=== PATIENT | female | born 1970 | race Caucasian/White ===

== ENCOUNTER 2018-01-20 21:38 | Emergency (ER) | payer OTHER, SELFPAY ==
[2018-01-20 21:40] VITALS: BP 130/92; PULSE 107; RESP 20; TEMP 37.4; O2SAT 97; BMI 27.1
--- NOTE | 2018-01-20 22:40 | ED.RN ---
SPOKE WITH PATIENT. PT STATED SHE WANTS TO LEAVE. STATES SHE FEELS MUCH BETTER AND HER FEVER BROKE. PT VERBALIZED IF SYMPTOMS WORSEN OR IF SHE HAS ANY OTHER CONCERNS SHE WILL COME BACK IMMEDIATELY. SHE STATES SHE WILL CALL HER PCP IN THE MORNING.
== END 2018-01-20 22:40 | disposition left against medical advice (07) ==
LOC: ED 01-21 00:18
PROVIDERS: Emergency Provider Emergency Medicine; Family Provider Family Medicine; PCP Family Medicine
DX: R69 Illness, unspecified (principal)

== ENCOUNTER → 2021-06-03 13:37 | Outpatient (CLI) | payer OTHER, SELFPAY ==
--- NOTE | 2021-06-03 13:44 | BI_ITS ---
MAMMOGRAPHY - BILATERAL SCREENING 3-D TOMOSYNTHESIS REASON FOR EXAM: Female, 50 years old. SCREENING PERTINENT HISTORY: No significant family history. TECHNIQUE: 2-D mammograms and 3-D Tomosynthesis of the breast (s) were performed. CAD was performed. COMPARISON: 04/28/2016 FINDINGS: The breast composition is heterogeneously dense that can obscure small breast masses. Scattered benign calcifications are seen. No dense spiculated masses or suspicious microcalcifications are identified. No architectural distortion is identified. There is no skin thickening or retraction. There has been no significant change since the prior study. BI/SCRN MAMM (CAD)W/LOTTIE BILAT IMPRESSION: No mammographic signs of malignancy. Routine yearly mammograms recommended. ASSESSMENT CATEGORY: BIRADS Category 1: Negative. A letter regarding these results will be sent to the patient by the facility within 30 days. FOLLOW UP RECOMMENDATION: Yearly follow up mammogram recommended. (A) Approximately 10% of breast cancers are not detected by mammography. A normal mammogram should not delay biopsy of a clinically suspicious abnormality. Electronically Signed: Kyle Weber MD at 15:36 EDT Tel , Service support ,
== END ==
PROVIDERS: PCP Family Medicine; Referring Provider Family Medicine; Visit Provider Family Medicine
DX: Z12.31 Encounter for screening mammogram for malignant neoplasm of breast (principal)
CPT/HCPCS: 77063; 77067

== ENCOUNTER → 2024-03-05 | Outpatient (CLI) | payer OTHER, SELFPAY ==
[2024-03-05 15:27] LABS: Absolute Lymphocyte Count 2.65 X10^3/uL (0.83-4.51); Absolute Neutrophil Count 3.6 X10^3/uL (2.0-7.7); Basophil# 0.04 X10^3/uL; Basophil% 0.6 % (0-1); Eosinophils% 1.4 % (0-5); Hematocrit 36.3 % (37-47); Hemoglobin 11.8 g/dL (12.0-15.0); Lymphocyte # 2.65 X10^3/ul (0.83-4.51); Mean Corp Hgb Conc 32.5 g/dL (32-36); Mean Corpuscular Hgb 29.2 pg (27.0-32.0); Mean Corpuscular Volume 89.9 fL (81-99); Mean Platelet Vol. 10.2 fl (6.2-12.0); Monocyte# 0.53 X10^3/uL; Monocyte% 7.6 % (0-10); NRBC Flagged by Analyzer 0 % (0-5); Neutrophil # 3.63 X10^3/uL (2.7-7.7); Neutrophil % 52.1 % (47-70); Platelet Count 283 K/mm3 (150-450); RBC Distribution Width CV 12.3 % (11.6-14.6); RBC Distribution Width SD 40.8 fl (35.1-43.9); Red Blood Count 4.04 M/mm3 (4.2-5.4)
[2024-03-05 15:35] LABS: Erythrocyte Sedimentation Rate 3 mm/hr (0-30)
[2024-03-05 18:32] LABS: ALB/GLOB Ratio 1.1 RATIO (0.9-2.4); AST(SGOT) 20 U/L (15-37); Alanine Aminotransfer ALT/SGPT 18 U/L (13-56); Albumin, Serum 3.8 g/dL (3.2-5.0); Alkaline Phosphatase 86 U/L (45-117); Anion Gap 6 (5-15); BUN 18 mg/dL (7-18); BUN/Creat Ratio 28.4 RATIO (10-20); CRP < 2.90 mg/L (0.0-3.0); Calcium,Total 9.1 mg/dL (8.5-10.1); Chloride 107 mmol/L (98-107); Creatinine, Serum 0.63 mg/dL (0.55-1.02); EST Glomerular Filtration Rate 103 mL/min (>60); Est Glom Filt Rate - Afr Amer 125 mL/min (>60); Globulin 3.5 g/dL (2.2-4.2); Glucose 90 mg/dL (74-106); Potassium 3.8 mmol/L (3.5-5.1); Protein, Total 7.3 g/dL (6.4-8.2); Sodium Level 140 mmol/L (136-145)
[2024-03-07 12:09] LABS: ANTINUCLEAR ANTIBODIES DIRECT Negative (Negative)
[2024-03-13 12:09] LABS: HLA B27 Positive (.)
== END | disposition home or self-care (01) ==
LOC: BFHLAB 13:52
PROVIDERS: PCP Family Medicine; Referring Provider Family Medicine; Visit Provider Family Medicine
DX: L40.9 Psoriasis, unspecified (principal); M25.50 Pain in unspecified joint; M79.10 Myalgia, unspecified site
CPT/HCPCS: 36415; 80053; 81374; 85025; 85652; 86038; 86140; 86225; 86235

== ENCOUNTER → 2024-06-01 | Outpatient (CLI) | payer OTHER, SELFPAY ==
[2024-06-01 16:57] LABS: Absolute Lymphocyte Count 2.89 X10^3/uL (0.83-4.51); Absolute Neutrophil Count 5.7 X10^3/uL (2.0-7.7); Basophil# 0.05 X10^3/uL; Basophil% 0.5 % (0-1); Eosinophil# 0.08 X10^3/uL; Eosinophils% 0.9 % (0-5); Hematocrit 37.7 % (37-47); Hemoglobin 12.1 g/dL (12.0-15.0); Lymphocyte # 2.89 X10^3/ul (0.83-4.51); Mean Corp Hgb Conc 32.1 g/dL (32-36); Mean Corpuscular Hgb 29.5 pg (27.0-32.0); Mean Platelet Vol. 10.3 fl (6.2-12.0); Monocyte# 0.53 X10^3/uL; Monocyte% 5.7 % (0-10); NRBC Flagged by Analyzer 0 % (0-5); Neutrophil # 5.74 X10^3/uL (2.7-7.7); Neutrophil % 61.7 % (47-70); Platelet Count 327 K/mm3 (150-450); RBC Distribution Width CV 11.9 % (11.6-14.6); RBC Distribution Width SD 40.5 fl (35.1-43.9); White Blood Count 9.3 K/mm3 (4.4-11.0)
[2024-06-01 17:38] LABS: Vitamin B12 579 pg/mL (211-911)
[2024-06-01 17:58] LABS: Ferritin 36 ng/mL (8-252); Iron Binding Capacity,Total 311 ug/dL (250-450)
[2024-06-02 08:14] LABS: Iron 83 ug/dL (50-170); PERCENT IRON SATURATION 26.7 % (15.0-55.0)
[2024-06-04 18:08] LABS: Endomysial Antibody IgA Negative (Negative); Immunoglobulin A 194 mg/dL (87-352); t-Transglutaminase IgA <2 U/mL (0-3)
== END | disposition home or self-care (01) ==
LOC: BFHLAB 14:22
PROVIDERS: PCP Family Medicine; Visit Provider Family Medicine
DX: K58.2 Mixed irritable bowel syndrome (principal); D64.9 Anemia, unspecified
CPT/HCPCS: 36415; 82607; 82728; 82746; 82784; 83516; 83540; 83550; 85025; 86255

== ENCOUNTER → 2024-06-27 | Outpatient (CLI) | payer OTHER, SELFPAY ==
[2024-06-27 10:36] LABS: Absolute Lymphocyte Count 2.46 X10^3/uL (0.83-4.51); Absolute Neutrophil Count 3.9 X10^3/uL (2.0-7.7); Basophil# 0.05 X10^3/uL; Basophil% 0.7 % (0-1); Eosinophil# 0.08 X10^3/uL; Eosinophils% 1.1 % (0-5); Hematocrit 37.6 % (37-47); Hemoglobin 12.6 g/dL (12.0-15.0); Lymphocyte # 2.46 X10^3/ul (0.83-4.51); Lymphocyte % 34.5 % (19-41); Mean Corp Hgb Conc 33.5 g/dL (32-36); Mean Corpuscular Hgb 30.4 pg (27.0-32.0); Mean Corpuscular Volume 90.8 fL (81-99); Mean Platelet Vol. 9.5 fl (6.2-12.0); Monocyte# 0.56 X10^3/uL; Monocyte% 7.9 % (0-10); NRBC Flagged by Analyzer 0 % (0-5); Neutrophil # 3.94 X10^3/uL (2.7-7.7); Neutrophil % 55.2 % (47-70); Platelet Count 321 K/mm3 (150-450); RBC Distribution Width CV 11.8 % (11.6-14.6); Red Blood Count 4.14 M/mm3 (4.2-5.4); White Blood Count 7.1 K/mm3 (4.4-11.0)
[2024-06-27 11:10] LABS: ALB/GLOB Ratio 1.2 RATIO (0.9-2.4); AST(SGOT) 22 U/L (15-37); Alanine Aminotransfer ALT/SGPT 24 U/L (13-56); Albumin, Serum 4.1 g/dL (3.2-5.0); Alkaline Phosphatase 84 U/L (45-117); Anion Gap 3 (5-15); BUN 17 mg/dL (7-18); BUN/Creat Ratio 23.5 RATIO (10-20); CRP < 2.90 mg/L (0.0-3.0); Chloride 107 mmol/L (98-107); Creatinine, Serum 0.72 mg/dL (0.55-1.02); EST Glomerular Filtration Rate 89 mL/min (>60); Est Glom Filt Rate - Afr Amer 107 mL/min (>60); Free T3 2.7 pg/mL (2.18-3.98); Globulin 3.3 g/dL (2.2-4.2); Glucose 85 mg/dL (74-106); LDH 195 U/L (84-246); Potassium 3.8 mmol/L (3.5-5.1); Protein, Total 7.4 g/dL (6.4-8.2); Sodium Level 138 mmol/L (136-145); T4 Free Direct 0.99 ng/dL (0.76-1.46); Thyroid Stim Hormone (TSH) 0.893 uIU/mL (0.358-3.740)
[2024-06-27 11:11] LABS: Erythrocyte Sedimentation Rate 7 mm/hr (0-30)
[2024-07-02 17:07] LABS: Anti-Centromere B Ab <0.2 AI (0.0-0.9); Anti-Chromatin <0.2 AI (0.0-0.9); Anti-Jo <0.2 AI (0.0-0.9); Anti-Scleroderma-70 AB <0.2 AI (0.0-0.9); Anti-dsDNA Ab 1 IU/mL (0-9); Beef <0.10 kU/L (Class 0); Chocolate <0.10 kU/L (Class 0); Codfish <0.10 kU/L (Class 0); Corn <0.10 kU/L (Class 0); Egg, Whole <0.10 kU/L (Class 0); Milk (Cow) <0.10 kU/L (Class 0); Mussels <0.10 kU/L (Class 0); Peanut <0.10 kU/L (Class 0); Pork <0.10 kU/L (Class 0); RNP Ab <0.2 AI (0.0-0.9); SJOGREN'S Anti-SS-A test < 0.2 AI (0.0-0.9); SJOGREN'S Anti-SS-B test < 0.2 AI (0.0-0.9); Salmon <0.10 kU/L (Class 0); Shrimp <0.10 kU/L (Class 0); Smith Ab <0.2 AI (0.0-0.9); Soybean <0.10 kU/L (Class 0); Tuna <0.10 kU/L (Class 0); Wheat <0.10 kU/L (Class 0)
[2024-07-03 11:10] LABS: ACCA 43 units (0-90); ALCA 3 units (0-60); AMCA 10 units (0-100); Alpha-1-Globulins 0.2 g/dL (0.0-0.4); Alpha-2-Globulins 0.9 g/dL (0.4-1.0); Cytoplasmic Ab (C-ANCA) <1:20 titer (Neg:<1:20); Endomysial Antibody IgA Negative (Negative); Gamma Globulin 0.9 g/dL (0.4-1.8); Immunoglobulin A 203 mg/dL (87-352); Immunoglobulin E 30 IU/mL (6-495); Immunoglobulin G 926 mg/dL (586-1602); Immunoglobulin M 46 mg/dL (26-217); PROEL- TOTAL PROTEIN 7.1 g/dL (6.0-8.5); Perinuclear Ab (P-ANCA) <1:20 titer (Neg:<1:20); gASCA 13 units (0-50); t-Transglutaminase IgA <2 U/mL (0-3)
== END | disposition home or self-care (01) ==
PROVIDERS: PCP Family Medicine; Referring Provider Student in an Organized Health Care Education/Training Program; Visit Provider Student in an Organized Health Care Education/Training Program
DX: R19.7 Diarrhea, unspecified (principal)
CPT/HCPCS: 36415; 80053; 82784; 82785; 83516; 83615; 84165; 84439; 84443; 84481; 85025; 85652; 86003; 86005; 86036; 86037; 86140; 86225; 86235; 86255; 86334; 86671

== ENCOUNTER → 2024-06-28 | Outpatient (CLI) | payer OTHER, SELFPAY ==
[2024-07-02 15:08] LABS: Pancreatic Elastase, Fecal 51 (>200)
[2024-07-04 08:13] LABS: Calprotectin, Stool 25 ug/g (0-120)
== END | disposition home or self-care (01) ==
LOC: LABSPEC 08:00
PROVIDERS: PCP Family Medicine; Referring Provider Student in an Organized Health Care Education/Training Program; Visit Provider Student in an Organized Health Care Education/Training Program
DX: K58.9 Irritable bowel syndrome, unspecified (principal); R19.7 Diarrhea, unspecified
CPT/HCPCS: 82653; 83630; 83993; 87177; 87209; 87329; 87506

== ENCOUNTER 2024-08-10 12:43 | Day surgery (SDC) | payer OTHER, SELFPAY ==
[2024-08-10] VITALS (7 sets, daily range): BP systolic 96–117; BP diastolic 52–71; PULSE 67–77; RESP 16; TEMP 36.4–36.9; O2SAT 96–99; BMI 26.5
--- NOTE | 2024-08-10 13:23 | PCM.PRE.AN2 ---
ASA Classification* ASA Classification ASA Classification: 2 Assessment & Plan Anesthesia* Anesthesia Assessment Anesthesia Assessment: Discussed sedation and/or anesthesia options, risks, benefits, and alternatives with patient/parents/legal guardian/POA. Questions invited. The patient/parents/legal guardian/POA seems to understand and agrees to proceed with anesthesia plan. Reviewed the physical assessment, medical history, allergy history and patient home medications list prior to surgery/procedure/anesthetic and documented any changes. Performed airway and anesthesia risk assessments. Anesthesia Type Anesthesia Type: MAC Anesthesia Focused Assessment* Temperature: 98.4 F Pulse Rate: 77 Blood Pressure: 117/52 Respiratory Rate: 16 Pulse Ox: 99 Airway Assessment Mouth opens: >3 cm Mallampati Score: II Focused Labs Anesthesia Preop lab: CBC WBC 7.1 K/mm3 (4.4-11.0) 06/27/24 10:14 RBC 4.14 M/mm3 (4.2-5.4) L 06/27/24 10:14 Hgb 12.6 g/dL (12.0-15.0) 06/27/24 10:14 Hct 37.6 % (37-47) 06/27/24 10:14 Plt Count 321 K/mm3 (150-450) 06/27/24 10:14 CHEMISTRY Potassium 3.8 mmol/L (3.5-5.1) 06/27/24 10:14 Sodium 138 mmol/L (136-145) 06/27/24 10:14 BUN 17 mg/dL (7-18) 06/27/24 10:14 Creatinine 0.72 mg/dL (0.55-1.02) 06/27/24 10:14 Glucose 85 mg/dL (74-106) 06/27/24 10:14 TSH 0.893 uIU/mL (0.358-3.740) 06/27/24 10:14 COAG Pre-Assessment Diagnosis/Proposed Procedure Planned Operative Procedure(s): COLONOSCOPY/EGD Anesthesia History 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 When Was Last Pacemaker Check QUESTION #4 FULL TEXT: You/Your Family Experience fever (hyperthermia) with Anesthesia Last Oral Intake Last Oral intake: Last Oral Intake NPO since 09:30 08/10/24 13:14 Meds taken in AM with sips of No 08/10/24 13:14 water? Meds patient instructed to take am of surgery PONV PONV - plant senior manager: PONV - plant senior manager Female Yes 08/08/24 10:50 HX of Motion Sickness No 08/08/24 10:50 HX of N/V After Surgery No 08/08/24 10:50 Non-Smoker Yes 08/08/24 10:50 Duration of Surgery greater No 08/08/24 10:50 than 60 minutes Number of Risk Factors 2 08/08/24 10:50 PONV Score Moderate Risk 08/08/24 10:50 Height & Weight Height & Weight: Anesthesia: Height & Weight Height 5 ft 3 in 08/10/24 13:14 Weight: 68 kg 08/10/24 13:14 Body Mass Index (BMI) 26.5 08/10/24 13:14 Respiratory Assessment Respiratory Assessment - plant senior manager: Respiratory Tract Infection Hx - plant senior manager Hx Respiratory Tract Infection No 08/08/24 10:50 STOP Sleep Apnea STOP Sleep Apnea - plant senior manager: STOP Sleep Apnea - plant senior manager Hx Hypertension No 08/08/24 10:50 Hx Sleep Apnea No 08/08/24 10:50 CPAP BIPAP Do you snore loudly (louder No 08/08/24 10:50 than talking or can be heard Do you often feel tired/ No 08/08/24 10:50 fatigued/ sleepy during daytime? Has anyone observed you stop No 08/08/24 10:50 breathing during sleep? STOP Results Negative 08/08/24 10:50 QUESTION #5 FULL TEXT : Do you snore loudly (louder than talking or can be heard through closed doors)? Tobacco Use History Tobacco Use History - plant senior manager: Tobacco Use History - plant senior manager Tobacco Use Smoking Status Never smoker 08/08/24 10:50 Hx Tobacco Use No 08/08/24 10:50 Years Smoking Packs Smoked per Day Smoking Cessation Date was within the last 15 years Hx Smoking Cessation Date Hx Smoking Cessation Counseling Hematologic Medial History Hematologic Hx - plant senior manager: Hematologic Medical Hx - administrative receptionist Hx of Blood Transfusion Yes 08/08/24 10:50 Hx of Transfusion in last 3 No 08/08/24 10:50 Months Date of Last Transfusion (if within last 3 months) Ever experience any problems No 08/08/24 10:50 with transfusion(s)? Specify any problems Hx of Preganancy in last 3 No 08/08/24 10:50 Months Nurse Filling Out Transfusion VCHRISTIN 08/08/24 10:50 & Questions: Date: 08/08/24 08/08/24 10:50 Time: 10:51 08/08/24 10:50 Patient unable to answer at this time (ie. confused, unrespo /Reproduction History /Reproductive History - plant senior manager: /Reproductive Hx- plant senior manager Hx Now No 08/08/24 10:50 Gestational Age (in weeks): EDC: Hx Hx Para Hx Section SAB No 08/08/24 10:50 PFSH Medical History Wears glasses Post-menopausal Arthritis Back pain Gastric reflux Non-smoker Anemia Achilles tendinitis Inverse psoriasis Fatigue Trochanteric bursitis Home Medications ?Medication ?Instructions ?Recorded ?Last Taken ?Type ferrous fumarate 89 mg (29 mg 89 mg PO .QOD 06/19/24 Unknown History iron) tablet multivitamin 1 tab PO QDAY 06/19/24 Unknown History psyllium husk 0.4 gram capsule 0.4 g PO QDAY 06/19/24 Unknown History (Metamucil) triamcinolone acetonide 0.5 % 1 applic topical QDAY 06/19/24 Unknown History topical cream dicyclomine 10 mg capsule 10 mg PO BID PRN abdominal pain 06/27/24 Unknown Rx #30 caps [id number] 2 cap PO TID #60 caps 07/03/24 Unknown Rx 36,000-114,000-180,000 unit capsule,delay rel (Creon) acetaminophen 500 mg capsule 1,000 mg PO Q6H PRN pain 08/08/24 Unknown History Allergy/AdvReac Type Severity Reaction Status Date / Time No Known Allergies Allergy Verified 08/10/24 13:10 Family History Mother High cholesterol Father Hypertension High cholesterol Brother Hypertension Sister Hypertension Grandmother Breast cancer Melanoma Grandfather Myocardial infarction, Onset Age: 40 Surgical History History of wisdom tooth extraction H/O laparoscopy Social History Smoking Status: Never smoker alcohol intake: current details: occasional substance use type: does not use what type of physical activity do you participate in: walking and running frequency: 5-6 times per week Review of Systems (Anesthesia) ROS Narrative System reviewed and no additional complaints, except as documented.
--- NOTE | 2024-08-10 13:45 | COLBX_PTH ---
PATIENT: NIKKI MORALES LOC: EN U#:[id number] AGE/SX: 54/F ROOM: RE08/10/[address]: Dr. Chaz Blanca DO : 1970 BED: DIS: 08/10/2024 SPEC #: [id number] RECD: 08/13/24 09:10 STATUS: BARBARA LYUDMILA #: [id number] IHSAN: 08/10/24 13:[address]: Chaz Blanca DEPT: SURGICAL PATHOLOGY RECD BY: Sherif Erickson ENTERED: 08/13/24 09:11 SP TYPE: COLON BX OTHR DR: Dr. Anel More MD Tissues: A - Duodenum, NOS B - Gastric mucous membrane C - Esophagus, NOS D - Ileum, NOS E - COLON BIOPSY Procedures: Special Stain Group I Surgery Specimen Level IV Alcian Blue/PAS (control) HEADER OPERATION: Colonoscopy with biopsies, EGD with biopsy PRE-OP DIAGNOSIS: Abdominal pain, diarrhea TISSUE SUBMITTED: A- Duodenum biopsy, B- Gastric antrum biopsy, C- Distal esophagus biopsy, D- Terminal ileum biopsy, E- Random colon biopsy MICROSCOPIC DIAGNOSIS A. Duodenum, biopsy: No pathologic change. B. Gastric antrum, biopsy: Chronic gastritis. See comment.C. Distal esophagus, biopsy: Gastric mucosa with mild chronic inflammation. No evidence of goblet cell metaplasia. See comment. D. Terminal ileum, biopsy: No pathologic change. E. Colon, random biopsy: No pathologic change. AM. 08/14/2024 COMMENT B. The results of immunohistochemistry for Helicobacter pylori will be reported separately ([id number]). C. Alcian blue/PAS stain with matched control is used in the evaluation of the specimen. MICROSCOPIC DESCRIPTION Slides are reviewed. GROSS DESCRIPTION A. Received in fixative is one container labeled with the patient's name and designated Duodenum biopsy. The specimen consists of multiple irregular fragments of light carney soft tissue that in aggregate measure 1.5 x 0.5 x 0.1 cm. The specimen is totally submitted in one cassette. B. Received in fixative is one container labeled with the patient's name and designated Gastric antrum biopsy. The specimen consists of multiple irregular fragments of light carney soft tissue that in aggregate measure 1.0 x 0.5 x 0.1 cm. The specimen is totally submitted in one cassette. C. Received in fixative is one container labeled with the patient's name and designated Distal esophagus biopsy. The specimen consists of one irregular fragment of light carney soft tissue that measures 0.3 x 0.4 x 0.1 cm. The specimen is totally submitted in one cassette. D. Received in fixative is one container labeled with the patient's name and designated Terminal ileum biopsy. The specimen consists of multiple irregular fragments of light carney soft tissue that in aggregate measure 1.0 x 0.4 x 0.1 cm. The specimen is totally submitted in one cassette. E. Received in fixative is one container labeled with the patient's name and designated Random colon biopsy. The specimen consists of multiple irregular fragments of light carney soft tissue that in aggregate measure 1.5 x 0.8 x 0.1 cm. The specimen is totally submitted in one cassette. SJ.mr 08/13/2024 TC:3CPT:[id number]
--- NOTE | 2024-08-10 13:45 | IMM_PTH ---
PATIENT: NIKKI MORALES LOC: EN U#:[id number] AGE/SX: 54/F ROOM: RE08/10/[address]: Dr. Chaz Blanca DO : 1970 BED: DIS: 08/10/2024 SPEC #: [id number] RECD: 08/13/24 10:41 STATUS: BARBARA REQ #: [id number] IHSAN: 08/10/24 13:[address]: Chaz Blanca DEPT: IMMUNOHISTOCHEMISTRY RECD BY: Randall Simmons ENTERED: 08/13/24 10:42 SP TYPE: IMMUNO OTHR DR: Dr. Anel More MD Tissues: A - Gastric mucous membrane Procedures: H Pylori (initial) PHYSICIAN & INSTITUTION [place] [id number] SPECIMEN INFORMATION: Tissue Source: B- Gastric antrum biopsy Clinical Info: Abdominal pain, diarrhea Specimen Number: [id number] CPT code: 54470 METHODOLOGY: Deparaffinized sections of prefer/formalin-fixed tissue or PAP/DQ stained slides are incubated with monoclonal/polyclonal antibodies/oligonucleotide probes. Localization is made via biotin free immunoperoxidase method. Appropriate controls are performed and reacted as expected. Results on target cell population are indicated in the following table: RESULTS: ANTIBODY / CLONE RESULT Block B H Pylori (polyclonal) negative These tests were developed and their performance characteristics determined by [facility]. They may not have been cleared or approved by the U.S. Food and Drug Administration. The FDA has determined that such clearance or approval is not necessary. The above immunohistochemical/dualISH markers are ordered and reviewed by the Pathologist. INTERPRETATION: B. Gastric antrum, biopsy: Negative for Helicobacter pylori organisms. AM 08/14/2024
--- NOTE | 2024-08-10 13:56 | HP.PCM_ITS ---
HPI - General General Date of Admission: 08/10/24 Date of Service: 08/10/24 Chief Complaint: Abdominal pain and diarrhea HPI Narrative NIKKI MORALES, is a 54 F who presents to the office today for establishment with BG. Pt was referred by her PCP for IBS type symptoms with alternating diarrhea and constipation. This has between going on for years now but has become much worse recently. She will have flares of diarrhea lasting for 3 days. She will be on the toilet for hours with watery loose stool and abdominal cramping. Then she will have some constipation for a few days. She is retired and travels often. SHe has been finding herself not eating any food on travel days to avoid any flares. She has also been having some heartburn which is not normal for her and will take her husbands PPI on occasion. She has arthritis and takes numerous NSAIDS for pain. SHe has a hx of psoriasis but has not had work up for any other autoimmune conditions. She notices She has never had a colonoscopy or an EGD. SHe has done a Cologuard test before that was negative. [facility] Medical History Wears glasses Post-menopausal Arthritis Back pain Gastric reflux Non-smoker Anemia Achilles tendinitis Inverse psoriasis Fatigue Trochanteric bursitis Home Medications ?Medication ?Instructions ?Recorded ?Last Taken ?Type ferrous fumarate 89 mg (29 mg 89 mg PO .QOD 06/19/24 Unknown History iron) tablet multivitamin 1 tab PO QDAY 06/19/24 Unknown History psyllium husk 0.4 gram capsule 0.4 g PO QDAY 06/19/24 Unknown History (Metamucil) triamcinolone acetonide 0.5 % 1 applic topical QDAY 06/19/24 Unknown History topical cream dicyclomine 10 mg capsule 10 mg PO BID PRN abdominal pain 06/27/24 Unknown Rx #30 caps wjezvx-pnswpbqx-imdlssk 2 cap PO TID #60 caps 07/03/24 Unknown Rx 36,000-114,000-180,000 unit capsule,delay rel (Creon) acetaminophen 500 mg capsule 1,000 mg PO Q6H PRN pain 08/08/24 Unknown History Allergy/AdvReac Type Severity Reaction Status Date / Time No Known Allergies Allergy Verified 08/10/24 13:10 Family History Mother High cholesterol Father Hypertension High cholesterol Brother Hypertension Sister Hypertension Grandmother Breast cancer Melanoma Grandfather Myocardial infarction, Onset Age: 40 Surgical History History of wisdom tooth extraction H/O laparoscopy Social History Smoking Status: Never smoker alcohol intake: current details: occasional substance use type: does not use what type of physical activity do you participate in: walking and running frequency: 5-6 times per week ROS Constitutional Constitutional: Denies fatigue, fever(s), poor appetite, weight gain or weight loss Gastrointestinal Gastrointestinal: Denies belching, bloating, change in bowel habits, change in stool character, chewing difficulty, coffee ground emesis, constipation, cramping, diarrhea, dyspepsia, dysphagia, early satiety, excessive flatus, fecal incontinence, heartburn, hematemesis, hematochezia, hemorrhoids, loose stools, melena, nausea, odynophagia, rectal bleeding, tenesmus, vomiting or weight changes Vital Signs Vital Signs Vital Signs: 08/10/24 13:14 08/10/24 13:14 08/10/24 13:23 Temperature 98.4 F 98.4 F Temperature Source Temporal Pulse Rate 77 77 Respiratory Rate 16 16 Respiratory Pattern Normal Blood Pressure 117/52 L 117/52 L Blood Pressure Mean 73 Blood Pressure Source Monitor Blood Pressure Position Semi-Fowlers Blood Pressure Location Left Arm Pulse Ox 99 99 Oxygen Delivery Method Room Air Weight Weight: 149 lb 14.629 oz Body Mass Index (BMI) 26.5 Physical Exam Const alert, oriented x3, no apparent distress and healthy appearing General Appearance: cooperative GI normal to inspection, nondistended, normoactive bowel sounds, soft to palpation, non-tender and non-distended Percussion: normal to percussion Rectal Exam: deferred Assessment & Plan Assessment/Plan (1) Abdominal pain: PLAN: 54-year-old with past medical IBS has been having worsening abdominal pain and refractory to medical therapy. She will undergo an upper endoscopy evaluate upper GI tract. She was explained alternatives, risk and benefits include not withstanding bleeding, infection, sepsis, perforation, need for emergent urgent . She will have an ASA of 3. (2) Diarrhea:
--- NOTE | 2024-08-10 14:56 | OP.CCLET_ITS ---
08/10/2024 Anel More [place] [id number] [facility] [address] [place] [address] Re : Upper GI endoscopy procedure for Maria Elena Alfred Dear Dr. More This procedure was performed on Saturday, August 10, 2024. My impressions and recommendations are as follows: Impressions : - Z-line irregular, 39 cm from the incisors. Biopsied. - Medium-sized hiatal hernia. - Chronic gastritis. Biopsied. - Erythematous duodenopathy. Biopsied. Recommendations : - Discharge patient to home. - Resume previous diet. - Continue present medications. - Await pathology results. My findings are described in the full procedure note, which is enclosed. If I can be of further assistance, please feel free to contact me at . Sincerely, Chaz Blanca, 08/10/2024 2:56:02 PM This report has been signed electronically.
--- NOTE | 2024-08-10 14:56 | OP.EGD_ITS ---
Patient Name: Maria Elena Alfred Procedure Date: 08/10/2024 2:25 PM Date of : 1970 Age: 54 Procedure: Upper GI endoscopy Indications: Epigastric abdominal pain, Dyspepsia Providers: Chaz Blanca DO Referring MD: Anel More Medicines: Monitored Anesthesia Care Patient Profile: This is a 54 year old female. Refer to note in patient chart for documentation of history and physical. Patient has symptoms of chronic epigastric abdominal pain and chronic dyspepsia. Complications: No immediate complications. Procedure: Pre-Anesthesia Assessment: - Prior to the procedure, a History and Physical was performed, and patient medications and allergies were reviewed. The patient is competent. The risks and benefits of the procedure and the sedation options and risks were discussed with the patient. All questions were answered and informed consent was obtained. Patient identification and proposed procedure were verified by the physician in the pre-procedure area. Mental Status Examination: alert and oriented. Airway Examination: normal oropharyngeal airway and neck mobility. Respiratory Examination: clear to auscultation. CV Examination: normal. Prophylactic Antibiotics: The patient does not require prophylactic antibiotics. Prior Anticoagulants: The patient has taken no anticoagulant or antiplatelet agents. ASA Grade Assessment: II - A patient with mild systemic disease. After reviewing the risks and benefits, the patient was deemed in satisfactory condition to undergo the procedure. The anesthesia plan was to use monitored anesthesia care (MAC). Immediately prior to administration of medications, the patient was re-assessed for adequacy to receive sedatives. The heart rate, respiratory rate, oxygen saturations, blood pressure, adequacy of pulmonary ventilation, and response to care were monitored throughout the procedure. The physical status of the patient was re-assessed after the procedure. After obtaining informed consent, the endoscope was passed under direct vision. Throughout the procedure, the patient's blood pressure, pulse, and oxygen saturations were monitored continuously. The Colonoscope was introduced through the mouth, and advanced to the second part of duodenum. The upper GI endoscopy was accomplished without difficulty. The patient tolerated the procedure well. Scope In: 2:36:15 PM Scope Out: 2:40:25 PM Total Procedure Duration Time 0 hours 4 minutes 10 seconds Findings: The Z-line was irregular and was found 39 cm from the incisors. Biopsies were taken with a cold forceps for histology. Verification of patient identification for the specimen was done. Estimated blood loss was minimal. A medium-sized hiatal hernia was present. Patchy moderate inflammation characterized by erosions, erythema and friability was found in the gastric antrum. Biopsies were taken with a cold forceps for histology. Verification of patient identification for the specimen was done. Estimated blood loss was minimal. Patchy mildly erythematous mucosa without active bleeding and with no stigmata of bleeding was found in the duodenal bulb. Biopsies were taken with a cold forceps for histology. Verification of patient identification for the specimen was done. Estimated blood loss was minimal. Impression: - Z-line irregular, 39 cm from the incisors. Biopsied. - Medium-sized hiatal hernia. - Chronic gastritis. Biopsied. - Erythematous duodenopathy. Biopsied. Recommendation: - Discharge patient to home. - Resume previous diet. - Continue present medications. - Await pathology results. Procedure Code(s): --- Professional --- 12479, Esophagogastroduodenoscopy, flexible, transoral; with biopsy, single or multiple CPT copyright 2021 [employer]. All rights reserved. The codes documented in this report are preliminary and upon care trainer review may be revised to meet current compliance requirements. Chaz Blanca DO 08/10/2024 2:56:02 PM This report has been signed electronically. Number of Addenda: 0 Note Initiated On: 08/10/2024 2:25 PM
--- NOTE | 2024-08-10 14:58 | OP.COLON_ITS ---
Patient Name: Maria Elena Alfred Procedure Date: 08/10/2024 2:40 PM Date of : 1970 Age: 54 Procedure: Colonoscopy Indications: Chronic diarrhea Providers: Chaz Blanca DO Referring MD: Anel More Medicines: Monitored Anesthesia Care Patient Profile: This is a 54 year old female. Refer to note in patient chart for documentation of history and physical. Patient has symptoms of chronic epigastric abdominal pain and chronic dyspepsia. Last Colonoscopy: date unknown. Unable to locate last colonoscopy report. Complications: No immediate complications. Procedure: Pre-Anesthesia Assessment: - Prior to the procedure, a History and Physical was performed, and patient medications and allergies were reviewed. The patient is competent. The risks and benefits of the procedure and the sedation options and risks were discussed with the patient. All questions were answered and informed consent was obtained. Patient identification and proposed procedure were verified by the physician in the pre-procedure area. Mental Status Examination: alert and oriented. Airway Examination: normal oropharyngeal airway and neck mobility. Respiratory Examination: clear to auscultation. CV Examination: normal. Prophylactic Antibiotics: The patient does not require prophylactic antibiotics. Prior Anticoagulants: The patient has taken no anticoagulant or antiplatelet agents. ASA Grade Assessment: II - A patient with mild systemic disease. After reviewing the risks and benefits, the patient was deemed in satisfactory condition to undergo the procedure. The anesthesia plan was to use monitored anesthesia care (MAC). Immediately prior to administration of medications, the patient was re-assessed for adequacy to receive sedatives. The heart rate, respiratory rate, oxygen saturations, blood pressure, adequacy of pulmonary ventilation, and response to care were monitored throughout the procedure. The physical status of the patient was re-assessed after the procedure. After I obtained informed consent, the scope was passed under direct vision. Throughout the procedure, the patient's blood pressure, pulse, and oxygen saturations were monitored continuously. The Colonoscope was introduced through the anus and advanced to the terminal ileum. The colonoscopy was performed without difficulty. The patient tolerated the procedure well. The quality of the bowel preparation was adequate. The terminal ileum, ileocecal valve, appendiceal orifice, and rectum were photographed. Scope In: 2:42:10 PM Scope Withdrawal Time 0 hours 7 minutes 9 seconds Scope Out: 2:51:44 PM Total Procedure Duration Time 0 hours 9 minutes 34 seconds Findings: The perianal and digital rectal examinations were normal. An area of mildly congested mucosa was found in the sigmoid colon and at the splenic flexure. Biopsies were taken with a cold forceps for histology. Verification of patient identification for the specimen was done. Estimated blood loss was minimal. A few small-mouthed diverticula were found in the sigmoid colon. The terminal ileum appeared normal. Biopsies were taken with a cold forceps for histology. Verification of patient identification for the specimen was done. Estimated blood loss was minimal. Impression: - Congested mucosa in the sigmoid colon and at the splenic flexure. Biopsied. - Diverticulosis in the sigmoid colon. - The examined portion of the ileum was normal. Biopsied. Recommendation: - Discharge patient to home. - Resume previous diet. - Continue present medications. - Await pathology results. - Repeat colonoscopy in 10 years for screening purposes. Procedure Code(s): --- Professional --- 35880, Colonoscopy, flexible; with biopsy, single or multiple CPT copyright 2021 [employer]. All rights reserved. The codes documented in this report are preliminary and upon certified medical records coder review may be revised to meet current compliance requirements. Chaz Blanca DO 08/10/2024 2:58:30 PM This report has been signed electronically. Number of Addenda: 0 Note Initiated On: 08/10/2024 2:40 PM
--- NOTE | 2024-08-10 14:59 | OP.CCLET_ITS ---
08/10/2024 Anel More [place] [id number] [place] [address] Re : Colonoscopy procedure for Maria Elena Aubrie Dear Dr. More This procedure was performed on Saturday, August 10, 2024. My impressions and recommendations are as follows: Impressions : - Congested mucosa in the sigmoid colon and at the splenic flexure. Biopsied. - Diverticulosis in the sigmoid colon. - The examined portion of the ileum was normal. Biopsied. Recommendations : - Discharge patient to home. - Resume previous diet. - Continue present medications. - Await pathology results. - Repeat colonoscopy in 10 years for screening purposes. My findings are described in the full procedure note, which is enclosed. If I can be of further assistance, please feel free to contact me at . Sincerely, Chaz Blanca, 08/10/2024 2:58:30 PM This report has been signed electronically.
--- NOTE | 2024-08-10 14:59 | PCM.POST.ANE ---
Anesthesia: Postop Eval I Current Vital Signs Temperature: 97.7 F Pulse Rate: 74 Blood Pressure: 103/63 Respiratory Rate: 16 Pulse Ox: 98 Oxygen Delivery Method: Room Air Assessment Airway patent: Yes Spontaneous unlabored respirations: Yes Mental status: Asleep nausea: No Vomiting: No Anesthesia Complication: No Fluid Hydration Crystalloid volume administer (ml): 60 Total IV fluid infused: 60 Progress Note Anesthesia document: Postop Eval 1 completed: Yes
--- NOTE | 2024-08-10 16:27 | PCM.POSTANE2 ---
Anesthesia Postop Eval I Sum Postop Eval Completion status Anesthesia document: Postop Eval 1 completed: Yes Anesthesia Postop Eval I Summary Anesthesia Postop Eval I Summary: Anesthesia Postop Eval I: Assessment Summary Airway patent Yes 08/10/24 15:00 [email or web address] Spontaneous unlabored Yes 08/10/24 15:00 [email or web address] respirations Mental status Asleep 08/10/24 15:00 [email or web address] nausea No 08/10/24 15:00 [email or web address] Vomiting No 08/10/24 15:00 [email or web address] Anesthesia Postop Eval I: Fluid Summary Crystalloid volume administer 60 08/10/24 15:00 [email or web address] (ml) Colloids volume administered ( ml) Blood Product volume administered (ml) Total IV fluid infused 60 08/10/24 15:00 [email or web address] Anesthesia Postop Eval I: Summary Notes Anesthesia Complication No 08/10/24 15:00 [email or web address] Anesthesia Complication Comment: Post-operative progress note Anesthesia: Postop Eval II Evaluation Mental status: Awake and Calm Pain Level: 0 nausea: No Vomiting: No Complications Anesthesia Complication: No
== END 2024-08-10 15:45 | disposition home or self-care (01) ==
LOC: EN 12:47 → AC 13:31
PROVIDERS: PCP Family Medicine; Referring Provider Family Medicine; Visit Provider Internal Medicine Gastroenterology
PROC: 0DJD8ZZ Inspection of Lower Intestinal Tract, Via Natural or Artificial Opening Endoscopic (ICD-10-PCS; CPT 45378; principal; 2024-08-10 13:40)
DX: K44.9 Diaphragmatic hernia without obstruction or gangrene (principal); K29.50 Unspecified chronic gastritis without bleeding; K52.9 Noninfective gastroenteritis and colitis, unspecified; K57.30 Diverticulosis of large intestine without perforation or abscess without bleeding; K25.9 Gastric ulcer, unspecified as acute or chronic, without hemorrhage or perforation; K21.00 Gastro-esophageal reflux disease with esophagitis, without bleeding
CPT/HCPCS: 45380; 43239; 88305; 88312; 88342; A4216; J2405

== ENCOUNTER → 2024-09-04 | Outpatient (CLI) | payer OTHER, SELFPAY ==
[2024-09-07 07:07] LABS: Pancreatic Elastase, Fecal 722 (>200)
== END | disposition home or self-care (01) ==
LOC: LABSPEC 13:23
PROVIDERS: PCP Family Medicine; Referring Provider Student in an Organized Health Care Education/Training Program; Visit Provider Student in an Organized Health Care Education/Training Program
DX: R19.7 Diarrhea, unspecified (principal)
CPT/HCPCS: 82653

== ENCOUNTER 2025-01-07 08:32 | Outpatient (RCR) | payer OTHER, SELFPAY | END 2025-01-26 23:59 | LOC: NS 08:32 | PROVIDERS: PCP Family Medicine; Visit Provider Family Medicine | DX: Z71.3 Dietary counseling and surveillance (principal); K58.9 Irritable bowel syndrome, unspecified | CPT/HCPCS: 97802 ==

== ENCOUNTER → 2025-05-30 | Outpatient (CLI) | payer OTHER, SELFPAY | END | disposition home or self-care (01) | LOC: OPBI 07:52 | PROVIDERS: PCP Internal Medicine; Referring Provider Internal Medicine; Visit Provider Internal Medicine | DX: Z12.31 Encounter for screening mammogram for malignant neoplasm of breast (principal) | CPT/HCPCS: 77063; 77067 ==

== ENCOUNTER → 2025-07-04 | Outpatient (CLI) | payer OTHER, SELFPAY ==
[2025-07-04 10:59] LABS: Vitamin B12 556 pg/mL (180-914)
[2025-07-04 11:03] LABS: FOLATES,SERUM (FOLIC ACID) 16.60 ng/mL (4.60-34.80)
== END | disposition home or self-care (01) ==
LOC: LAB 08:59
PROVIDERS: PCP Internal Medicine
DX: R07.0 Pain in throat (principal)
CPT/HCPCS: 36415; 82607; 82746; 87070